=== PATIENT | female | born 1985 | race African-American/Black ===

== ENCOUNTER 2018-03-04 11:10 | Emergency (ER) | payer MEDICARE, MEDICAID ==
[~2018-03-04] VITALS: Ht 157.5 cm; Wt 60.8 kg
[2018-03-04 11:25] VITALS: BP 107/71
[2018-03-04] MEDS ORDERED: IBUPROFEN 800 MG TAB PO ONE (13:15)
== END 2018-03-04 13:34 | disposition home or self-care (01) ==
LOC: ER 11:10
DX: S09.90XA Unspecified injury of head, initial encounter (principal); Z90.89 Acquired absence of other organs; Z88.6 Allergy status to analgesic agent; Y08.89XA Assault by other specified means, initial encounter; Y93.89 Activity, other specified; Y99.8 Other external cause status; Y92.89 Other specified places as the place of occurrence of the external cause
CPT/HCPCS: 70450

== ENCOUNTER 2018-06-30 02:22 | Emergency (ER) | payer OTHER, MEDICAID ==
[~2018-06-30] VITALS: Ht 167.6 cm; Wt 59.0 kg
[2018-06-30 03:47] LABS: Basophils # (auto) 0 uL; Basophils % (auto) 0.2 % (0.0-2.0); Eosinophils # (auto) 0.1 uL; Eosinophils % (auto) 0.4 % (0.0-7.0); Hematocrit 36.8 % (36.0-46.0); Hemoglobin 11.8 g/dL (12.2-16.2); Lymphocytes # (auto) 0.9 uL; Lymphocytes % (auto) 5.8 % (10.0-50.0); Mean Corpuscular Hemoglobin 27.3 pg (28.0-32.0); Mean Corpuscular Hgb Conc. 31.9 g/dL (32.0-36.0); Mean Corpuscular Volume 85.6 fL (80.0-100.0); Monocytes # (auto) 0.6 uL; Monocytes % (auto) 4.1 % (0.0-12.0); Neutrophils # (auto) 14.1 uL; Neutrophils % (auto) 89.5 % (37.0-80.0); Platelet Count (auto) 338 10^3/uL (140-450); Red Cell Distribution Width 16.1 % (11.8-14.3); White Blood Cell 15.7 10^3/uL (4.4-10.8)
[2018-06-30 03:56] LABS: INR 1.07 (0.9-1.15); Partial Thromboplastin Time 23.8 sec (23.78-33.04); Prothrombin Time 11.4 sec (9.27-12.13)
[2018-06-30 04:07] LABS: Albumin 3.6 g/dL (3.4-5.0); BUN/Creatinine Ratio 7.9; Calcium 8.8 mg/dL (8.5-10.1); Potassium 3.2 mmol/L (3.5-5.1)
[2018-06-30 04:10] LABS: Bilirubin, Total 0.9 mg/dL (0.2-1.0); Total Protein 7.2 g/dL (6.4-8.2)
[2018-06-30] MEDS ORDERED: SODIUM CHLORIDE 0.9% 1,000 ML IV ONE (07:49)
[2018-06-30] MEDS ORDERED: POTASSIUM EFFERVESENT TAB 25 MEQ PO ONE (08:00)
[2018-06-30] MEDS ORDERED: KETOROLAC TROMETH 30 MG/ML 1ML VIAL IV ONE (08:00)
[2018-06-30] MEDS ORDERED: PROMETHAZINE HCL 25 MG/ML 1ML IV PRN (08:00)
[2018-06-30 08:33] VITALS: BP 126/76
[2018-06-30 10:18] LABS: Urine Bacteria NONE SEEN /hpf (None Seen); Urine Blood Negative /uL (Negative); Urine WBC <1 /hpf (0 - 5)
== END 2018-06-30 11:30 | disposition home or self-care (01) ==
LOC: EDBD 02:22 → ER 02:28
DX: D27.0 Benign neoplasm of right ovary (principal); E87.6 Hypokalemia; R74.8 Abnormal levels of other serum enzymes; F31.9 Bipolar disorder, unspecified; R11.2 Nausea with vomiting, unspecified; Z90.49 Acquired absence of other specified parts of digestive tract
CPT/HCPCS: 36415; 76856; 80053; 81001; 81025; 83690; 83735; 84702; 85025; 85610; 85730; 96360

== ENCOUNTER 2025-04-05 07:29 | Emergency (ER) | payer MEDICARE, MEDICAID ==
[~2025-04-05] VITALS: Ht 157.5 cm; Wt 68.9 kg
[~2025-04-05 07:29] MED LIST: METH-1182 PO
[2025-04-05 08:26] VITALS: BP 117/74; PULSE 78; RESP 16; TEMP 98; O2SAT 97
[2025-04-05] MEDS: KETOROLAC TROMETH 60MG/2ML VIAL IM ONE (08:47)
--- NOTE | 2025-04-05 08:52 | ED.PDOC ---
History of Present Illness(SKN HPI Comments A 39 year old female presents to the ED c/o insect bite of right foot. Patient states she was bitten by an insect on the top of her right foot earlier today at about 0700. Patient reports he is now experiencing mild pain that she describes as a burning sensation to the affected area and would like to have her right foot evaluated. Able to ambulate. Denies fever, SOB, chest pain, abdominal pain, nausea, vomiting, diarrhea, headache, dizziness, vision changes, or numbness/tingling of extremities. No other symptoms or modifying factors reported at this time. Patient is alert and oriented x4 and has a stable gait. Chief Complaint: Insect Bite Time Seen by MD: 07:36 Primary Care Provider: SMILEY History of Present Illness: Nurses Notes, Medications, Allergies Allergies: Coded Allergies: Morphine (Verified Adverse Reaction, Intermediate, HANDS SWELLING, 04/12/12) Home Meds Active Scripts Methocarbamol (Methocarbamol) 750 Mg Tab, 750 MG PO BID, #30 TAB Prov:LIZ MICHAEL 01/21/24 Information Source: Patient Mode of Arrival: Ambulatory Severity: Moderate Timing: Hours Duration: Since onset, Hours Prehospital treatment: None Location: Foot (right foot) Mechanism: Insect Occurence: Indoors Object: None Condition of Object: None Retained Foreign Body: No Wound Type: Other (insect bite) Immunization Status of Animal: NA Tetanus: Unknown History of: None Associated Signs and Symptoms: Pain Past Medical History PAST MEDICAL HISTORY: Schizophrenia Surgical History: Appendectomy, CORRECTIVE THERAPIST History: No Pertinent CORRECTIVE THERAPIST History Family History Family History: Reviewed,noncontributory to illness Social History Smoker: Non-Smoker Alcohol: Occasionally Drugs: Marijuana Lives In: Home Constitutional: denies: chills, diaphoresis, fatigue, fever, malaise, sweats, weakness, others EENTM: denies: blurred vision, double vision, ear bleeding, ear discharge, ear drainage, ear pain, ear ringing, eye pain, eye redness, hearing loss, mouth pain, mouth swelling, nasal discharge, nose bleeding, nose congestion, nose pain, photophobia, tearing, throat pain, throat swelling, voice changes, others Respiratory: denies: cough, hemoptysis, orthopnea, SOB at rest, shortness of b reath, SOB with excertion, stridor, wheezing, others Cardiovascular: denies: chest pain, dizzy spells, diaphoresis, Dyspnea on exertion, edema, irregular heart beat, left arm pain, lightheadedness, palpitations, PND, syncope, others Gastrointestinal: denies: abdomen distended, abdominal pain, blood streaked bowels, constipated, diarrhea, dysphagia, difficulty swallowing, hematemesis, melena, nausea, poor appetite, poor fluid intake, rectal bleeding, rectal pain, vomiting, others Genitourinary: denies: abnormal vagina bleeding, burning, dyspareunia, dysuria, flank pain, frequency, hematuria, incontinence, pain, , vagina discharge, urgency, others Neurological: denies: dizziness, fainting, headache, left sided numbness, left sided weakness, numbness, paresthesia, pre-existing deficit, right sided numbness, right sided weakness, seizure, speech problems, tingling, tremors, weakness, others Musculoskeletal: denies: back pain, gout, joint pain, joint swelling, muscle pain, muscle stiffness, neck pain, others Integumetry: reports: others (Insect bite of right foot); denies: bruises, change in color, change in hair/nails, dryness, laceration, lesions, lumps, rash, wounds Hematologic/Lymphatic: denies: anemia, blood clots, easy bleeding, easy bruising, swollen glands, others Endocrine: denies: excessive hunger, excessive sweating, excessive thirst, excessive urination, flushing, intolerance to cold, intolerance to heat, unexplained weight gain, unexplained weight loss, others Psychiatric: denies: anxiety, bipolar disorder, depression, hopeless, panic disorder, schizophrenia, sleepless, suicidal, others All Other Systems: Reviewed and Negative Physical Exam General Appearance: No Apparent Distress, Normal HEENT: Normal ENT Inspection, Pharynx Normal, TMs Normal Neck: Full Range of Motion, Non-Tender, Normal, Normal Inspection Respiratory: Chest Non-Tender, Lungs Clear, No Accessory Muscle Use, No Respiratory Distress, Normal Breath Sounds Cardiovascular: No Edema, No JVD, No Murmur, No Gallop, Normal Peripheral Pulses, Regular Rate/Rhythm Breast Exam: Deferred Gastrointestinal: No Organomegaly, Non Tender, No Pulsatile Mass, Normal Bowel Sounds, Soft Genitalia: Deferred Pelvic: Deferred Rectal: Deferred Extremities: No calf tenderness, Normal capillary refill, Normal inspection, No rmal range of motion, No pedal edema, Other (Pain noted upon palpation to dorsal aspect of right metatarsal of right foot.) Musculoskeletal : Apperance: Normal Neurologic: Alert, evening anchor II-XII nml as Tested, No Motor Deficits, Normal Affect, Normal Mood, No Sensory Deficits Cerebellar Function: Normal Reflexes: Normal Skin: Dry, Normal Color, Warm Lymphatic: No Adenopathy Was a procedure done? Was a procedure done?: No Differential Diagnosis (INTG) Differential Diagnosis: Abrasion, Cellulitis, Contusion, Insect Envenomation, Puncture Wound Differential Diagnosis: N/A Differential Diagnosis: N/A Abscess: N/A Differential Diagnosis: N/A X-Ray, Labs, Meds, VS Vital Signs Date Time Temp Pulse Resp B/P (MAP) Pulse Ox O2 Delivery O2 Flow Rate FiO2 04/05/25 08:26 98.0 78 16 117/74 (88) 97 98.0 04/05/25 07:35 98.0 78 16 117/74 (88) 97 98.0 Current Medications Medications (Trade) Dose Ordered Sig/Zoe Route Start Time Stop Time Status Last Admin Ketorolac Tromethamine (Toradol Injection) 60 mg ONCE ONCE IM 04/05/25 08:45 04/05/25 08:46 DC 04/05/25 08:47 X-Ray, Labs, Meds, VS Comment Foot with possible area of early cellulitis but no torres abscess formation. No overt evidence of necrosis or abscess. No cardiothoracic symptoms, no peritoneal signs. At this time, will trial pain control and muscle relaxants. Will continue to monitor . TDAP up to date. On reevaluation, patient had symptomatic improvement. Patient is stable for discharge at this time. External notes reviewed. Test results and diagnostic imaging interpreted. All diagnostic findings, discharge care, education and instructions provided Follow-up with PCP in 2 to 3 days Patient verbalized understanding and agreed to treatment plan Vital signs stable, afebrile, no acute distress noted Patient ambulatory with strong steady gait Advised to return precautions for any new or worsening symptoms, return to ER immediately for re-evaluation Patient is aware that the purpose of this visit was for an acute medical emergency requiring emergent stabilization. Chronic conditions, including malignancies have not been ruled out. Patient is instructed to follow up with PCP as directed and discharge instructions for continued care and workup. If unable to arrange follow-up, patient is to return to the emergency department for reassessment. Patient (parent or legal guardian if applicable) was given verbal and written discharge instructions and acknowledges understanding. External Medical Records Reviewed: Independent historians: Pt Social Determinants of Health: [None] I have discussed the patient with the attending physician Dr. Mccurdy and he agrees with the patient's plan of care and disposition. Based on history of present illness, and physical exam, patient will be dischar ged home. Discussed plan for discharge home with Rx [naproxen 500 mg BID]. Medication warnings given. Shared Decision Making: Patient instructed to follow up with primary care provider in 1-2 days for re-evaluation of symptoms. Patient verbalizes understanding to return to ED for new or worsening symptoms or if follow up with PCP cannot be obtained. Patient feels comfortable going home at this time. All questions addressed at time of discharge. Time of 1ST Reevaluation: 08:50 Reevaluation 1ST: Improved Patient Education/Counseling: Diagnosis, Treatment, Need For Follow Up Family Education/Counseling: Diagnosis, Treatment, Need For Follow Up Departure 1 Departure Time of Disposition: 08:56 Impression: Primary Impression: Insect bite of right foot Qualified Codes: S90.861A - Insect bite (nonvenomous), right foot, initial encounter; W57.XXXA - Bitten or stung by nonvenomous insect and other nonvenomous arthropods, initial encounter Disposition: 01 HOME / SELF CARE / HOMELESS Condition: Stable Additional Instructions: Follow up with PCP in 1-2 days. Take medications as prescribed. Return to ED for any new or worsening symptoms. Discharged With: Self Critical Care Note Critical Care Time?: No Stability Stability form required: No Heart Score Heart Score: Heart Score Response (Comments) Value History N/A 0 EKG N/A 0 Age N/A 0 Risk Factors N/A 0 Troponin N/A 0 Total 0 I personally scribed for CECI WELLS NP ([email or web address]) on 04/05/25 at 08:52. Electronically submitted by Tom Swift ([email or web address]). CECI WELLS NP Apr 05, 2025 08:52
== END 2025-04-05 09:08 | disposition home or self-care (01) ==
LOC: ER 07:29
DX: S90.861A Insect bite (nonvenomous), right foot, initial encounter (principal); F20.9 Schizophrenia, unspecified; Z90.49 Acquired absence of other specified parts of digestive tract; Z88.5 Allergy status to narcotic agent; W57.XXXA Bitten or stung by nonvenomous insect and other nonvenomous arthropods, initial encounter; Y93.89 Activity, other specified; Y92.89 Other specified places as the place of occurrence of the external cause; Y99.8 Other external cause status
CPT/HCPCS: 96372; 99283; J1885